=== PATIENT | female | born 1950 | race Caucasian/White ===

== ENCOUNTER 2022-09-19 15:25 | Emergency (ER) | payer OTHER, SELFPAY ==
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
[2022-09-19 15:29] VITALS: BP 205/87; PULSE 81; RESP 21; TEMP 37; O2SAT 98; BMI 40.2
--- NOTE | 2022-09-19 15:30 | ECG_ITS ---
[facility] Test Date: 2022-09-19 Pat Name: Leah Almazan Department: Room: Gender: Female Church Worker: : 1950 Requested By: Cipriano eJnkins Order Number: [id number] [place] MD: Lg Lu M.D. Measurements Intervals [place] Rate: 76 P: 73 MT: 154 QRS: 64 QRSD: 84 T: 77 QT: 392 QTc: 441 Interpretive Statements SINUS RHYTHM NONSPECIFIC ST & T-WAVE ABNORMALITY No previous ECG available for comparison Electronically Signed On 09-19-2022 17:30:34 CDT by Lg Lu M.D. [id number] f
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
[2022-09-19 15:41] LABS: Basophils # 0.1 10^3/uL (0.0-0.1); Basophils % 0.5 %; Eosinophils # 0.2 10^3/uL (0.0-0.8); Eosinophils % 1.8 %; Hematocrit 38.2 % (37.0-47.0); Hemoglobin 12.2 g/dL (11.5-15.3); Lymphocytes # 3.2 10^3/uL (0.8-4.8); Lymphocytes % 29.6 %; Mean Corpuscular HGB Conc 31.9 g/dL (30.0-36.0); Mean Corpuscular Hemoglobin 28.6 pg (28.0-34.0); Mean Corpuscular Volume 89.7 fl (81-99); Mean Platelet Volume 9.5 fL (7.4-10.4); Monocytes # 0.7 10^3/uL (0.2-0.9); Monocytes % 6.8 %; Neutrophils # 6.56 10^3/uL (1.8-7.7); Nucleated Red Blood Cells % 0 %; Platelet Count 282 10^3/cmm (130-400); Red Blood Count 4.26 10^6/uL (4.1-5.3); Red Cell Distribution Width 13.4 % (12.1-15.1); White Blood Count 10.7 10^3/uL (4.0-10.0)
[2022-09-19] MEDS: iohexol 350 mg/mL 500 mL Btl (per mL) IV (15:50)
[2022-09-19 15:52] LABS: Partial Thromboplastin Time 25.9 SECONDS (23.9-36.7)
[2022-09-19 15:57] LABS: Alanine Aminotransferase 18 U/L (0-33); Alkaline Phosphatase 72 U/L (35-105); Anion Gap 12.4 (5-19); Aspartate Amino Transferase 17 U/L (0-32); Blood Urea Nitrogen 14 mg/dL (8-23); Calcium 9.3 mg/dL (8.5-10.5); Carbon Dioxide 29 mmol/L (22-29); Chloride 101 mmol/L (98-107); Globulin 3.1 g/dL (1.3-4.6); Glucose 124 mg/dL (65-115); Osmolality Calculated 290 mOsm/kg (285-295); Potassium 3.4 mmol/L (3.5-5.1); Sodium 139 mmol/L (136-145); Total Bilirubin 0.2 mg/dL (0.15-1.2); Total Protein 7.1 g/dL (6.6-8.7)
[2022-09-19] MEDS: ondansetron 2 mg/ML SDV 2 mL 4 MG IVP (16:48)
[2022-09-19] MEDS: ibuprofen 800 mg tablet PO (17:04)
[2022-09-19 17:09] LABS: Add Urine Microscopic? YES; Bilirubin Urine Neg (Negative); Blood Urine 2+ (Negative); Glucose Urine UA Norm (Normal); Ketones Urine Negative (Negative); Leukocyte Esterase Urine Negative (Negative); Nitrate Urine Negative (Negative); Protein Urine Neg (Negative); Specific Gravity, Urine 1.005 (1.005-1.030); Urine Appearance Clear (CLEAR); Urine Color Colorless (Yellow); Urobilinogen Urine Norm (Negative); pH Urine 7 (5-7)
[2022-09-19 17:10] LABS: Add Urine Culture? No; Bacteria Urine TRACE /hpf
[2022-09-19 17:38] VITALS: PULSE 82; RESP 16; O2SAT 95
== END 2022-09-19 17:39 | disposition home or self-care (01) ==
PROVIDERS: Emergency Provider Family Medicine; PCP Internal Medicine
DX: S00.03XA Contusion of scalp, initial encounter (principal); S09.8XXA Other specified injuries of head, initial encounter; V89.2XXA Person injured in unspecified motor-vehicle accident, traffic, initial encounter; J44.9 Chronic obstructive pulmonary disease, unspecified
CPT/HCPCS: 70450; 71260; 72125; 73502; 74177; 80053; 81001; 85025; 85730; 93005; 96374; 99285; J2405; Q9967